=== PATIENT | female | born 1980 | race Caucasian/White ===

== ENCOUNTER 2019-06-21 15:36 | Inpatient (IN) | payer BC, SELFPAY ==
[2019-06-21] VITALS (12 sets, daily range): BP systolic 118–143; BP diastolic 90–107; PULSE 74–96; RESP 12–21; TEMP 37–37.1; O2SAT 98–100; BMI 18.8
--- NOTE | ~2019-06-21 | XR_ITS ---
XR abdomen NG/feed tube insert INDICATION: Evaluate NG tube position. TECHNIQUE: Limited KUB perform for evaluating NG tube . COMPARISON: 09/20/2006 FINDINGS: NG tube tip in the stomach. Visualized bowel gas pattern is unremarkable. IMPRESSION: 1: NG tube tip in the stomach. Reviewed, dictated and finalized at location A. ACE REPAIR MECHANIC
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
--- NOTE | ~2019-06-21 | XR_ITS ---
EXAMINATION: XR chest 1V portable DATE: 06/23/2019 05:56 INDICATION: Intubation. TECHNIQUE: A single frontal view of the chest was obtained. COMPARISON: Chest single view 06/21/2019, CT abdomen and pelvis 12/20/2003 FINDINGS: There is no pneumonia, pleural effusion, or pneumothorax. The heart size is normal. The end otracheal tube tip is 5.1 cm above the guillermina. The nasogastric tube tip is beyond the inferior margin of the radiograph, but at least to the stomach. IMPRESSION: 1. No acute cardiopulmonary disease. Reviewed, dictated and finalized at location A. BRICK AND REFRACTORY TILE REPAIRER
--- NOTE | ~2019-06-21 | XR_ITS ---
XR chest ET placement 06/21/2019 17:53 Indication: Postintubation Procedure: AP portable chest Comparison: 06/21/2019 Findings: Endotracheal tube tip 5.1 cm above the guillermina. NG tube in the stomach. Heart size normal. N o focal air space disease, pulmonary edema, pleural effusion or suspected pneumothorax. Impression: 1: No acute cardiopulmonary disease. Reviewed, dictated and finalized at location A. CARE TEACHER Impression: 1: No acute cardiopulmonary disease.
--- NOTE | ~2019-06-21 | XR_ITS ---
EXAMINATION: XR chest 1V portable 06/21/2019 16:58 INDICATION: Transient alteration of awareness PROCEDURE: AP portable chest COMPARISON: No prior studies for comparison. FINDINGS: The lungs are clear. The cardiomediastinal silhouette is within normal limits. There are no pleural effusions. There is no pneumothorax suspected. IMPRESSION: 1: NO ACUTE CARDIOPULMONARY DISEASE. Reviewed, dictated and finalized at location A. L BEARING TURNER
--- NOTE | 2019-06-21 16:02 | ECG_ITS ---
Measurements Intervals Rousseau Rate: 86 P: 72 MI: 151 QRS: 56 QRSD: 94 T: 56 QT: 389 QTc: 467 Interpretive Statements SINUS RHYTHM POSSIBLE LEFT ATRIAL ENLARGEMENT INCOMPLETE RIGHT BUNDLE BRANCH BLOCK BASELINE ARTIFACT- II, III, AVL, AVF BORDERLINE ECG Electronically Signed On 06-21-2019 21:07:04 INSTRUMENT MECHANICS SUPERVISOR by Avel Mclain D.O.
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
[2019-06-21 16:15] LABS: Glucose Point of Care 85 (65-105)
[2019-06-21 16:19] LABS: Basophils Percent Auto 0.9 % (0.2-1.2); Eosinophils Absolute Auto 0.1 K/mm3 (0-0.3); Eosinophils Percent Auto 1.5 % (0-4.4); Hematocrit 42.7 % (37.0-47.0); Hemoglobin 13.7 g/dL (12.0-15.0); Immature Granulocyte Absolute 0.01 K/mm3 (0.00-0.031); Immature Granulocyte Percent A 0.2 % (0-0.5); Lymphocytes Absolute Auto 1.41 K/mm3 (0.9-3.2); Lymphocytes Percent Auto 30.9 % (18.3-44.2); Mean Corpuscular HGB Conc 32.1 g/dl (32-36); Mean Corpuscular Hemoglobin 30.9 pg (26-34); Mean Corpuscular Volume 96.2 fl (80-100); Mean Platelet Volume 9.7 fl (7.4-10.4); Monocytes Absolute Auto 0.3 K/mm3 (0.1-0.6); Monocytes Percent Auto 5.5 % (2.6-8.5); Neutrophils Absolute Auto 2.8 K/mm3 (1.3-6.7); Platelet Count Result 282 k/mm3 (150-375); Red Blood Count 4.44 M/mm3 (4.2-5.4); Red Cell Distribution Width 13.8 % (11.5-14.5); White Blood Count 4.6 K/mm3 (4.5-10.0)
[2019-06-21 16:24] LABS: Add Urine Microscopic? YES; Appearance Urine Clear (Clear); Bilirubin Urine Negative (Negative); Blood Urine 2+ (Negative); Color Urine Colorless (Yellow); Glucose Urine UA 1+ mg/dL (Negative); Ketones Urine Negative (Negative); Leukocyte Esterase Ur Negative LEU/UL (Negative); Nitrate Urine Negative (Negative); Protein Urine Negative (Negative); RBC Urine 0-2 /hpf (0-2); Squamous Epithelial Cell Urine Rare /hpf (Few); Urobilinogen Urine Negative mg/dL (<2.0); WBC Urine 0-3 /hpf
[2019-06-21 16:26] LABS: Specific Grav Ur 1.003 (1.001-1.035)
[2019-06-21 16:35] LABS: Acetaminophen < 10 ug/mL (10-30); Salicylate < 1.0 mg/dL (2-20)
[2019-06-21 16:36] LABS: Alanine Aminotransferase 16 U/L (4-35); Albumin Level 4.6 g/dL (3.5-5.1); Alkaline Phosphatase 54 U/L (38-126); Aspartate Amino Transferase 30 U/L (14-36); Bilirubin,Total 0.2 mg/dL (0.2-1.3); Blood Urea Nitrogen 6 mg/dL (7-17); Calcium 8.9 mg/dL (8.4-10.2); Carbon Dioxide 26 mmol/L (22-30); Chloride 111 mmol/L (98-107); Estimated CRCL calculation 76 ml/min; Estimated Glomerular Filt Rate > 60; Glucose 88 mg/dL (65-105); Potassium 3.9 mmol/L (3.4-5.0); Sodium 149 mmol/L (137-145)
[2019-06-21 16:43] LABS: Amphetamine Screen Urine Negative (Negative); Barbiturate Screen Urine Negative (Negative); Benzodiazepines Screen Urine Positive (Negative); Cannabinoid Screen Urine Negative (Negative); Cocaine Screen Urine Positive (Negative); Methadone Screen Urine Negative (Negative); Opiate Screen Urine Negative (Negative); Phencyclidine Screen Urine Negative (Negative)
[2019-06-21 16:48] LABS: Base Excess ABG -0.9 mEq/l (+/-2.0); Carboxyhemoglobin 1.1 % THb (0-2.0); Fractional Inspired Oxygen 21 %; Methemoglobin ABG 0.2 %THb (0-1.5); Oxygen Saturation ABG 96.1 % (95.0-100.0); Oxyhemoglobin 94.4 % THb (90.0-100.0); PCO2 ABG 52.1 mmHg (35.0-45.0); PO2 ABG 89.9 mmHg (80.0-100.0); PO2 FiO2 Ratio Arterial Blood 4.28 %; Reduced Hemoglobin 4.3 %THb (0-5.0); Total Hemoglobin 14.3 g/dL (12.0-18.0); pH ABG 7.316 (7.350-7.450)
[2019-06-21 16:50] LABS: Device ROOM AIR; Site Drawn RIGHT BRACHIAL
[2019-06-21 16:51] LABS: Troponin I < 0.012 ng/mL (0.000-0.034)
--- NOTE | 2019-06-21 17:00 | PC.NURSE ---
Pt as increased work of breathing. snoring at this time. MD notified
[2019-06-21 17:10] LABS: Thyroid Stimulating Hormone 0.944 uIU/mL (0.465-4.680)
--- NOTE | 2019-06-21 17:32 | PC.NURSE ---
MD to intubate pt at this time. Respiratory present. VORB: 5mg Rocuronium 100mg Etomidate
--- NOTE | 2019-06-21 17:34 | PC.NURSE ---
1734: 100mg Etomidate 1734: Rocuronium given
--- NOTE | 2019-06-21 17:41 | PC.NURSE ---
7.5 tube, 23 at the lip, good color change
--- NOTE | 2019-06-21 17:45 | PC.NURSE ---
pt biting at tube, VORB 50mcg Fentanyl
[2019-06-21 17:48] LABS: Ethanol 196 mg/dL (<10)
--- NOTE | 2019-06-21 18:01 | PC.NURSE ---
Pt attempting to pull at tube, biting tube Pt placed in soft restraints at this time 50mcg Fentanyl given
--- NOTE | 2019-06-21 18:17 | PC.NURSE ---
Pt still biting at tube, thrashing 2mg Versed given IVP per VORB
--- NOTE | 2019-06-21 18:20 | PC.NURSE ---
Pt taken to CT at this time. Respiratory and this RN at bedside.
--- NOTE | 2019-06-21 18:23 | PC.NURSE ---
Pt thrashing on CT scanner, 20mcg Fentanyl given IVP
[2019-06-21] MEDS: MIDAZOLAM HCL 50 MG in DEXTROSE 5% 90 ML IV CONT (18:37)
[2019-06-21 18:38] LABS: Alveolar/Arterial O2 Gradient 48.1 mmHg; Base Excess ABG -2.5 mEq/l (+/-2.0); Carboxyhemoglobin 0.5 % THb (0-2.0); Fractional Inspired Oxygen 50 %; HCO3 ABG 22.9 mEq/l (22.0-26.0); Methemoglobin ABG 0.4 %THb (0-1.5); Oxygen Saturation ABG 99.6 % (95.0-100.0); PO2 ABG 261.2 mmHg (80.0-100.0); PO2 FiO2 Ratio Arterial Blood 5.22 %; Reduced Hemoglobin 1.1 %THb (0-5.0); Total Hemoglobin 14.1 g/dL (12.0-18.0); pH ABG 7.355 (7.350-7.450)
[2019-06-21 18:42] LABS: Arterial Blood Gas Ventilator rate 16 /MIN; Device VENTILATOR; Modified Allen's Test Pass; Site Drawn LEFT RADIAL
[2019-06-21 18:43] LABS: Arterial Blood Gas Minute Volume 0 LPM; Arterial Blood Gas PEEP 5 cmH2O; Arterial Blood Gas Pressure Support 0 cmH2O; Arterial Blood Gas Tidal Volume 350 ml; Arterial Blood Gas Vent Mode CMV; Peak Inspiratory Pressure 0 cmH2O
--- NOTE | 2019-06-21 19:04 | PC.NURSE ---
Addendum entered by Moon Chahal RN 06/21/19 19:04: 1817 Original Note: Pt still biting at tube, thrashing 2mg Versed given IVP per VORB
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
--- NOTE | 2019-06-21 19:25 | PC.NURSE ---
Daughter, Fallon would like to be notified with any changes [phone]
[2019-06-21 20:36] LABS: Blood Urea Nitrogen 5 mg/dL (7-17); Calcium 8.7 mg/dL (8.4-10.2); Carbon Dioxide 19 mmol/L (22-30); Chloride 113 mmol/L (98-107); Estimated CRCL calculation 99 ml/min; Estimated Glomerular Filt Rate > 60; Glucose 64 mg/dL (65-105); Magnesium 2.7 mg/dL (1.6-2.3); Potassium 4.3 mmol/L (3.4-5.0); Sodium 150 mmol/L (137-145)
[2019-06-21 21:33] LABS: Troponin I < 0.012 ng/mL (0.000-0.034)
[2019-06-21 21:49] LABS: Glucose Point of Care 66 (65-105)
[2019-06-21] MEDS: DEXTROSE 5% 1,000 ML 1,000 ML 100 ML IV CONT (21:57)
[2019-06-21 22:09] LABS: Alveolar/Arterial O2 Gradient 29.3 mmHg; Base Excess ABG -0.9 mEq/l (+/-2.0); Fractional Inspired Oxygen 30 %; HCO3 ABG 23.3 mEq/l (22.0-26.0); Oxygen Content ABG 19.1 %vol (16.0-22.0); Oxygen Saturation ABG 98.8 % (95.0-100.0); Oxyhemoglobin 97.3 % THb (90.0-100.0); PCO2 ABG 37.1 mmHg (35.0-45.0); Total Hemoglobin 13.8 g/dL (12.0-18.0); pH ABG 7.415 (7.350-7.450)
--- NOTE | 2019-06-21 22:10 | ADMGEN ---
This patient, Saray Loza, was admitted to Intensive Care Unit-6. Patient/family oriented to hospital policies and general routines including ID bracelet, bed and alarms, visiting hours, pain management, procedures, bathroom and other care routines, personal items, smoking policy, room service/diet, and visiting hours. Valuables list has been completed. Information on how to activate the Rapid Response Team has been discussed. Patient/Family are encouraged to report perceived risks to care and to ask questions if they do not understand what they are told or what they should do.
[2019-06-21 22:12] LABS: Device VENTILATOR; Modified Allen's Test Pass; Site Drawn LEFT RADIAL
[2019-06-21 22:13] LABS: Arterial Blood Gas PEEP 5 cmH2O; Arterial Blood Gas Tidal Volume 350 ml; Arterial Blood Gas Vent Mode CMV; Arterial Blood Gas Ventilator rate 16 /MIN
[2019-06-21 23:33] LABS: Glucose Point of Care 101 (65-105)
[2019-06-22] VITALS (24 sets, daily range): BP systolic 113–156; BP diastolic 55–100; PULSE 59–80; RESP 11–100; TEMP 36.6–38.1; O2SAT 30–100; BMI 15.5
[2019-06-22 00:49] LABS: Blood Urea Nitrogen 6 mg/dL (7-17); Calcium 8.3 mg/dL (8.4-10.2); Carbon Dioxide 23 mmol/L (22-30); Chloride 112 mmol/L (98-107); Estimated CRCL calculation 88 ml/min; Estimated Glomerular Filt Rate > 60; Glucose 89 mg/dL (65-105); Potassium 3.5 mmol/L (3.4-5.0); Sodium 146 mmol/L (137-145)
[2019-06-22 04:29] LABS: Basophils Absolute Auto 0.1 K/mm3 (0.0-0.1); Basophils Percent Auto 0.5 % (0.2-1.2); Eosinophils Absolute Auto 0.4 K/mm3 (0-0.3); Eosinophils Percent Auto 3.6 % (0-4.4); Hematocrit 43.3 % (37.0-47.0); Hemoglobin 13.8 g/dL (12.0-15.0); Immature Granulocyte Absolute 0.02 K/mm3 (0.00-0.031); Immature Granulocyte Percent A 0.2 % (0-0.5); Lymphocytes Absolute Auto 2.83 K/mm3 (0.9-3.2); Lymphocytes Percent Auto 28.5 % (18.3-44.2); Mean Corpuscular HGB Conc 31.9 g/dl (32-36); Mean Corpuscular Hemoglobin 30.7 pg (26-34); Mean Corpuscular Volume 96.4 fl (80-100); Mean Platelet Volume 9.6 fl (7.4-10.4); Monocytes Absolute Auto 0.8 K/mm3 (0.1-0.6); Monocytes Percent Auto 8.5 % (2.6-8.5); Neutrophils Absolute Auto 5.8 K/mm3 (1.3-6.7); Neutrophils Percent Auto 58.7 % (45.5-73.1); Platelet Count Result 262 k/mm3 (150-375); Red Blood Count 4.49 M/mm3 (4.2-5.4); Red Cell Distribution Width 14.1 % (11.5-14.5); White Blood Count 9.9 K/mm3 (4.5-10.0)
[2019-06-22 04:42] LABS: Blood Urea Nitrogen 7 mg/dL (7-17); Calcium 8.5 mg/dL (8.4-10.2); Carbon Dioxide 22 mmol/L (22-30); Chloride 110 mmol/L (98-107); Estimated CRCL calculation 88 ml/min; Estimated Glomerular Filt Rate > 60; Glucose 67 mg/dL (65-105); Potassium 4.1 mmol/L (3.4-5.0); Sodium 144 mmol/L (137-145)
[2019-06-22 05:06] LABS: Alveolar/Arterial O2 Gradient 39.4 mmHg; Base Excess ABG 2.5 mEq/l (+/-2.0); Fractional Inspired Oxygen 30 %; HCO3 ABG 27.4 mEq/l (22.0-26.0); Oxygen Content ABG 18.9 %vol (16.0-22.0); Oxygen Saturation ABG 98.5 % (95.0-100.0); Oxyhemoglobin 97.1 % THb (90.0-100.0); PCO2 ABG 43.2 mmHg (35.0-45.0); PO2 ABG 123.7 mmHg (80.0-100.0); PO2 FiO2 Ratio Arterial Blood 4.12 %; Total Hemoglobin 13.7 g/dL (12.0-18.0)
[2019-06-22 05:07] LABS: Device VENTILATOR; Modified Allen's Test Pass; Site Drawn LEFT RADIAL
[2019-06-22 05:08] LABS: Arterial Blood Gas PEEP 5 cmH2O; Arterial Blood Gas Tidal Volume 350 ml; Arterial Blood Gas Vent Mode CMV; Arterial Blood Gas Ventilator rate 16 /MIN
[2019-06-22 06:58] LABS: Glucose Point of Care 71 (65-105)
[2019-06-22] MEDS: MIDAZOLAM HCL 50 MG in DEXTROSE 5% 90 ML IV CONT (07:05)
[2019-06-22] MEDS: DEXTROSE 5% 1,000 ML 1,000 ML 100 ML IV CONT ×2 (07:10→16:57)
[2019-06-22] MEDS: THIAMINE HCL 200 MG/2 ML VIAL 100 MG IV PUSH (08:36)
[2019-06-22] MEDS: ENOXAPARIN 40 MG/0.4 ML SYRINGE SUB-Q (12:09)
[2019-06-22] MEDS: PANTOPRAZOLE SODIUM IV 40 MG VIAL IV PUSH (12:09)
--- NOTE | 2019-06-22 12:15 | WPDCNINT ---
Assessment and Plan Assessment and plan (1) Acute respiratory failure: Qualifiers: Respiratory failure complication: unspecified whether with hypoxia or hypercapnia Qualified Code(s): J96.00 - Acute respiratory failure, unspecified whether with hypoxia or hypercapnia Code(s): J96.00 - Acute respiratory failure, unspecified whether with hypoxia or hypercapnia Status: Acute Assessment and Plan: patient was intubated for airway protection after overdosing on not medications/pills. - Patient had a low GCS in the ED and was placed on mechanical ventilation - chest x-ray and ABGs reviewed, - will hold fentanyl and Versed infusion and place patient on SBT and evaluate for extubation. (2) Acute encephalopathy: Code(s): G93.40 - Encephalopathy, unspecified Status: Acute Assessment and Plan: Acute encephalopathy likely related to alcohol intoxication, cocaine abuse and unknown medication /substance overdose - patient received adequate IV fluids, his waking up and following commands on the ventilator (3) Overdose: Qualifiers: Encounter type: initial encounter Injury intent: undetermined intent Qualified Code(s): T50.904A - Poisoning by unspecified drugs, medicaments and biological substances, undetermined, initial encounter Code(s): T50.901A - Poisoning by unspecified drugs, medicaments and biological substances, accidental (unintentional), initial encounter Status: Acute Assessment and Plan: unknown substance /medication overdose - patient also with alcohol intoxication and cocaine abuse (4) Alcoholic intoxication: Qualifiers: Complication of substance-induced condition: with delirium Qualified Code(s): F10.921 - Alcohol use, unspecified with intoxication delirium Code(s): F10.929 - Alcohol use, unspecified with intoxication, unspecified Status: Acute Assessment and Plan: patient with alcohol intoxication, alcohol levels were significantly elevated on admission - continue IV fluids, thiamine, folic acid (5) Cocaine abuse: Code(s): F14.10 - Cocaine abuse, uncomplicated Status: Acute Assessment and Plan: patient with cocaine abuse, urine tox screen was positive for benzodiazepines and cocaine - will addictions counselor assistant patient on cessation of cocaine use once she is extubated (6) Suicide attempt: Code(s): T14.91XA - Suicide attempt, initial encounter Status: Acute Assessment and Plan: according the father, this was a active suicide attempt/behavior by the patient as she has been mood depressed recently and stressed. the patient lost her mother not too long ago - once patient is extubated, medically stable will have care coordination and crisis management evaluate the patient - family requests psych help (7) DVT prophylaxis: Code(s): Z29.9 - Encounter for prophylactic measures, unspecified Status: Acute Assessment and Plan: DVT prophylaxis: Lovenox Stress ulcer prophylaxis: Protonix Additional Plan discussed with father and updated him with patient's condition and plan of care. I answered all questions code status: Full code Critical care time spent: 39 minutes Due to a high probability of clinically significant, life threatening deterioration, the patient required my highest level of preparedness to intervene emergently and I personally spent this critical care time directly and personally managing the patient. This critical care time included obtaining a history; examining the patient; pulse oximetry; ordering and review of studies; arranging urgent treatment with development of a management plan; evaluation of patient's response to treatment; frequent reassessment; and discussions with other providers. It was exclusive of separately billable procedures and treating other patients and teaching time. Please see Assessment and Plan section and the rest of
[2019-06-22 12:32] LABS: Glucose Point of Care 102 (65-105)
[2019-06-22] MEDS: LACTATED RINGERS 1,000 ML 999 ML IV CONT (13:30)
[2019-06-22 16:57] LABS: Glucose Point of Care 102 (65-105)
[2019-06-22 23:56] LABS: Glucose Point of Care 85 (65-105)
[2019-06-23] VITALS (15 sets, daily range): BP systolic 108–156; BP diastolic 68–101; PULSE 60–98; RESP 10–26; TEMP 36.8–38.7; O2SAT 99–100
[2019-06-23] MEDS: DEXTROSE 5% 1,000 ML 1,000 ML 100 ML IV CONT ×3 (03:04→21:37)
[2019-06-23 04:28] LABS: Hematocrit 38.8 % (37.0-47.0); Hemoglobin 12.9 g/dL (12.0-15.0); Mean Corpuscular HGB Conc 33.2 g/dl (32-36); Mean Corpuscular Hemoglobin 31.2 pg (26-34); Mean Corpuscular Volume 93.7 fl (80-100); Mean Platelet Volume 10.1 fl (7.4-10.4); Platelet Count Result 235 k/mm3 (150-375); Red Blood Count 4.14 M/mm3 (4.2-5.4); Red Cell Distribution Width 13.6 % (11.5-14.5); White Blood Count 8.1 K/mm3 (4.5-10.0)
[2019-06-23 04:41] LABS: Blood Urea Nitrogen 6 mg/dL (7-17); Calcium 8.6 mg/dL (8.4-10.2); Carbon Dioxide 24 mmol/L (22-30); Chloride 102 mmol/L (98-107); Estimated CRCL calculation 82 ml/min; Estimated Glomerular Filt Rate > 60; Glucose 103 mg/dL (65-105); Magnesium 2.1 mg/dL (1.6-2.3); Potassium 3.4 mmol/L (3.4-5.0); Sodium 134 mmol/L (137-145)
[2019-06-23 05:43] LABS: Alveolar/Arterial O2 Gradient 28.3 mmHg; Base Excess ABG -0.1 mEq/l (+/-2.0); Carboxyhemoglobin 0.1 % THb (0-2.0); Fractional Inspired Oxygen 30 %; HCO3 ABG 22.9 mEq/l (22.0-26.0); Methemoglobin ABG 0.5 %THb (0-1.5); Oxygen Content ABG 19.2 %vol (16.0-22.0); Oxyhemoglobin 97.8 % THb (90.0-100.0); PCO2 ABG 32.5 mmHg (35.0-45.0); PO2 ABG 147.4 mmHg (80.0-100.0); PO2 FiO2 Ratio Arterial Blood 4.91 %; Reduced Hemoglobin 1.6 %THb (0-5.0); Total Hemoglobin 13.8 g/dL (12.0-18.0); pH ABG 7.465 (7.350-7.450)
[2019-06-23 05:44] LABS: Device VENTILATOR; Modified Allen's Test Pass; Site Drawn LEFT RADIAL
[2019-06-23 05:45] LABS: Arterial Blood Gas PEEP 5 cmH2O; Arterial Blood Gas Vent Mode ASV
[2019-06-23] MEDS: THIAMINE HCL 200 MG/2 ML VIAL 100 MG IV PUSH (08:33)
[2019-06-23] MEDS: ENOXAPARIN 40 MG/0.4 ML SYRINGE SUB-Q (08:33)
[2019-06-23] MEDS: PANTOPRAZOLE SODIUM IV 40 MG VIAL IV PUSH (08:34)
--- NOTE | 2019-06-23 11:40 | WPDINTPN ---
Progress Note: A&P Assessment and Plan (1) Acute respiratory failure: Qualifiers: Respiratory failure complication: unspecified whether with hypoxia or hypercapnia Qualified Code(s): J96.00 - Acute respiratory failure, unspecified whether with hypoxia or hypercapnia Code(s): J96.00 - Acute respiratory failure, unspecified whether with hypoxia or hypercapnia Status: Acute Assessment and Plan: patient was intubated for airway protection after overdosing on not medications/pills. Patient had a low GCS in the ED and was placed on mechanical ventilation - chest x-ray and ABGs reviewed, - discontinued Precedex infusion, patient placed on SBT and extubated (2) Acute encephalopathy: Code(s): G93.40 - Encephalopathy, unspecified Status: Acute Assessment and Plan: RESOLVED: IS MORE AWAKE, ALERT, FOLLOWS COMMANDS - Acute encephalopathy likely related to alcohol intoxication, cocaine abuse and unknown medication /substance overdose (3) Suicide attempt: Code(s): T14.91XA - Suicide attempt, initial encounter Status: Acute Assessment and Plan: according the father, this was a active suicide attempt/behavior by the patient as she has been mood depressed recently and stressed. the patient lost her mother not too long ago - patient is medically stable and will have crisis management evaluate the patient later this afternoon - family requests psych help (4) Overdose: Qualifiers: Encounter type: initial encounter Injury intent: undetermined intent Qualified Code(s): T50.904A - Poisoning by unspecified drugs, medicaments and biological substances, undetermined, initial encounter Code(s): T50.901A - Poisoning by unspecified drugs, medicaments and biological substances, accidental (unintentional), initial encounter Status: Acute Assessment and Plan: unknown substance /medication overdose - patient also with alcohol intoxication and cocaine abuse (5) Alcoholic intoxication: Qualifiers: Complication of substance-induced condition: with delirium Qualified Code(s): F10.921 - Alcohol use, unspecified with intoxication delirium Code(s): F10.929 - Alcohol use, unspecified with intoxication, unspecified Status: Acute Assessment and Plan: patient with alcohol intoxication, alcohol levels were significantly elevated on admission - continue IV fluids, thiamine, folic acid (6) Cocaine abuse: Code(s): F14.10 - Cocaine abuse, uncomplicated Status: Acute Assessment and Plan: patient with cocaine abuse, urine tox screen was positive for benzodiazepines and cocaine - will curriculum counselor patient on cessation of cocaine (7) DVT prophylaxis: Code(s): Z29.9 - Encounter for prophylactic measures, unspecified Status: Acute Assessment and Plan: DVT prophylaxis: Lovenox Stress ulcer prophylaxis: Protonix Additional Plan discussed with father and updated him with patient's condition and plan of care. I answered all questions code status: Full code Critical care time spent: 32 minutes Due to a high probability of clinically significant, life threatening deterioration, the patient required my highest level of preparedness to intervene emergently and I personally spent this critical care time directly and personally managing the patient. This critical care time included obtaining a history; examining the patient; pulse oximetry; ordering and review of studies; arranging urgent treatment with development of a management plan; evaluation of patient's response to treatment; frequent reassessment; and discussions with other providers. It was exclusive of separately billable procedures and treating other patients and teaching time. Please see Assessment and Plan section and the rest of the note for further information on patient assessment and treatment Subjective Date/time seen:
--- NOTE | 2019-06-23 11:45 | PCDIET ---
Nutrition Follow-Up Complete: Nutrition Diagnosis: Inadequate oral intake related to oral intubation as evidenced by NPO status. Nutrition Goal: Patient to meet estimated nutritional needs. Goal not met. However, patient was extubated earlier today and MD plans to advance diet if patient continues to do well. Recommend regular diet with Ensure Compact (220kcal, 9g protein) TID. Would monitor for signs/symptoms of refeeding syndrome and replace electrolytes, as needed. Last recorded weight is 56.7 kg which is increased significantly. Question accuracy of 43kg weight, given it is an outlier. Bowel Motility: No documented bowel movement yet. Labs Reviewed: BUN (6), Na (134) Meds Noted: Precedex, Protonix, Thiamine Additional Notes: No documented skin breakdown. Will continue to monitor with same goal. Nutrition Monitoring and Evaluation: Follow up every 3 days. Follow daily in ICU rounds.
--- NOTE | 2019-06-23 15:02 | PM.DS ---
DS: Diagnosis Admitting Diagnosis Admitting Diagnosis: Acute respiratory failure, unspecified whether with hypoxia or hypercapnia Discharge Diagnosis (1) Acute respiratory failure: Qualifiers: Respiratory failure complication: unspecified whether with hypoxia or hypercapnia Qualified Code(s): J96.00 - Acute respiratory failure, unspecified whether with hypoxia or hypercapnia Code(s): J96.00 - Acute respiratory failure, unspecified whether with hypoxia or hypercapnia Status: Acute Assessment and Plan: Admit to ICU, telemetry, [employer] T[employer] Maker has been consulted by ER provider. Continue versed and fentanyl for sedation overnight. Monitor ABG. Wean off of bipap when possible. (2) Acute encephalopathy: Code(s): G93.40 - Encephalopathy, unspecified Status: Acute Assessment and Plan: Secondary to alcohol intoxication, cocaine, and possible overdose. Neurochecks once the patient is extubated. CT brain was unremarkable. Check TSH w/ reflex T4. Urine drug screen is unremarkable. (3) Alcoholic intoxication: Qualifiers: Complication of substance-induced condition: with delirium Qualified Code(s): F10.921 - Alcohol use, unspecified with intoxication delirium Code(s): F10.929 - Alcohol use, unspecified with intoxication, unspecified Status: Acute Assessment and Plan: Continue Banana bag and daily thiamine. CIWA-AR protocol. The patient will need to be counseled on alcohol abuse when she is extubated. (4) Overdose: Qualifiers: Encounter type: initial encounter Injury intent: undetermined intent Qualified Code(s): T50.904A - Poisoning by unspecified drugs, medicaments and biological substances, undetermined, initial encounter Code(s): T50.901A - Poisoning by unspecified drugs, medicaments and biological substances, accidental (unintentional), initial encounter Status: Acute Assessment and Plan: Possible drug overdose of unknown intention. Close monitoring of cardiopulmonary function. telemetry. Will need to obtain a better history once the patient is extubated and awake to find out if she is suicidal. (5) Cocaine abuse: Code(s): F14.10 - Cocaine abuse, uncomplicated Status: Acute Assessment and Plan: The patient will need to be counseled on cocaine abuse and cessation when she is extubated. (6) Hypernatremia: Code(s): E87.0 - Hyperosmolality and hypernatremia Status: Acute Assessment and Plan: Will start the patient on D5W. Monitor BMP closely. (7) Metabolic acidosis with increased anion gap and accumulation of organic acids: Code(s): E87.2 - Acidosis Status: Acute Assessment and Plan: Monitor acid-base status closely. Continue IV fluids. Will consider sodium bicarbonate IV drip if necessary overnight. DS: Summary Hospital Course Reason for hospitalization: This is a 39 year old female who presented to the hospital today with acute altered mental status. Per ER provider EMS was called by the patient's boyfriend at 1400 today and were told that the patient possibly took an unknown amount of pills. The boyfriend told EMS that she took Amoxicillin, but he is unsure. When EMS arrived on scene, the patient got into her car and fled the scene. 45 minutes prior to the patient's ED arrival, the patient's father called EMS and notified them that the patient showed up at his house and passed out on his couch. The patient's father told EMS that she has been on a cocaine tellez and has been depressed recently. The father told EMS that the patient has not been suicidal. EMS gave the patient Narcan in route to the ED, but the patient did not become alert. She had a recent hysterectomy. The patient was intubated and sedated in the ER for acute respiratory failure. CT brain was unremarkable for acute pathology. Routine labs demonstrated a urine tox screen positive for benzodiazepines and co
[2019-06-24] VITALS: BP 109/69; PULSE 73; RESP 13; O2SAT 100
[2019-06-24 02:00] VITALS: BP 111/69; PULSE 81; RESP 16; O2SAT 100
[2019-06-24 04:00] VITALS: BP 108/77; PULSE 64; PULSE 71
[2019-06-24 04:01] VITALS: BP 108/77; PULSE 71; RESP 12; O2SAT 100
[2019-06-24 06:00] VITALS: PULSE 61
[2019-06-24] MEDS: DEXTROSE 5% 1,000 ML 1,000 ML 100 ML IV CONT (06:49)
[2019-06-24 06:53] LABS: Glucose Point of Care 84 (65-105)
[2019-06-24 08:00] VITALS: BP 125/87; PULSE 68; RESP 14; TEMP 36.7; O2SAT 100
[2019-06-24] MEDS: PANTOPRAZOLE SODIUM IV 40 MG VIAL IV PUSH (08:18)
[2019-06-24] MEDS: ENOXAPARIN 40 MG/0.4 ML SYRINGE SUB-Q (08:18)
[2019-06-24] MEDS: THIAMINE HCL 200 MG/2 ML VIAL 100 MG IV PUSH (08:18)
--- NOTE | 2019-06-24 11:49 | WPDINTPN ---
Progress Note: A&P Assessment and Plan (1) Acute respiratory failure: Qualifiers: Respiratory failure complication: unspecified whether with hypoxia or hypercapnia Qualified Code(s): J96.00 - Acute respiratory failure, unspecified whether with hypoxia or hypercapnia Code(s): J96.00 - Acute respiratory failure, unspecified whether with hypoxia or hypercapnia Status: Acute Assessment and Plan: patient was intubated for airway protection after overdosing on Unknown medications/pills. Patient had a low GCS in the ED. she has been extubated yesterday and she tolerated very well. She is on room air at this time. No issue with the mental status. (2) Acute encephalopathy: Code(s): G93.40 - Encephalopathy, unspecified Status: Acute Assessment and Plan: Resolved. Seems to be awake and alert and at her baseline. - Acute encephalopathy likely related to alcohol intoxication, cocaine abuse and unknown medication /substance overdose. (3) Suicide attempt: Code(s): T14.91XA - Suicide attempt, initial encounter Status: Acute Assessment and Plan: according the father, this was a active suicide attempt/behavior by the patient as she has been mood depressed recently and stressed. the patient lost her mother not too long ago - patient is medically stable and Ready for crisis management evaluation. It seems that she has a bed available in the psych facility. She is medically cleared for transfer if the bed is available. - family requests psych help (4) Overdose: Qualifiers: Encounter type: initial encounter Injury intent: undetermined intent Qualified Code(s): T50.904A - Poisoning by unspecified drugs, medicaments and biological substances, undetermined, initial encounter Code(s): T50.901A - Poisoning by unspecified drugs, medicaments and biological substances, accidental (unintentional), initial encounter Status: Acute Assessment and Plan: unknown substance /medication overdose - patient also with alcohol intoxication and cocaine abuse She will need inpatient psych admission. (5) Alcoholic intoxication: Qualifiers: Complication of substance-induced condition: with delirium Qualified Code(s): F10.921 - Alcohol use, unspecified with intoxication delirium Code(s): F10.929 - Alcohol use, unspecified with intoxication, unspecified Status: Acute Assessment and Plan: patient with alcohol intoxication, alcohol levels were significantly elevated on admission - continue thiamine, folic acid. Stop IV fluid. She denied have ever any symptoms of anxiety / tremors and restlessness when she does not drink. (6) Cocaine abuse: Code(s): F14.10 - Cocaine abuse, uncomplicated Status: Acute Assessment and Plan: patient with cocaine abuse, urine tox screen was positive for benzodiazepines and cocaine - will loan counselor patient on cessation of cocaine (7) DVT prophylaxis: Code(s): Z29.9 - Encounter for prophylactic measures, unspecified Status: Acute Assessment and Plan: DVT prophylaxis: Lovenox Stress ulcer prophylaxis: Protonix Additional Plan discussed with father and updated him with patient's condition and plan of care. I answered all questions. Discontinue Christianson's catheter. She is ambulatory and ready to be discharged to the inpatient psych facility if the bed is available. If the bed is not available then she will be downgraded to the floor status. code status: Full code Subjective Date/time seen: 06/24/19 12:49 She has been extubated yesterday and she tolerated very well. She is on room air now. There is no signs of alcohol withdrawal. She denied have any symptoms of anxiety / tremor when she does not drink alcohol. Her urine was positive for benzodiazepine and cocaine. Her alcohol level was elevated as well at the time o
== END 2019-06-24 15:16 | DRG 917 ==
LOC: ANHED 18:35 → ANHICU 06-23 14:40
PROVIDERS: Emergency Medicine; Family Medicine; Internal Medicine; Admitting Provider Internal Medicine; Emergency Provider Emergency Medicine; Visit Provider Family Medicine
DX: T40.5X2A Poisoning by cocaine, intentional self-harm, initial encounter (principal); J96.00 Acute respiratory failure, unspecified whether with hypoxia or hypercapnia; G92 Toxic encephalopathy; F10.921 Alcohol use, unspecified with intoxication delirium; E87.0 Hyperosmolality and hypernatremia; E87.2 Acidosis; T51.0X2A Toxic effect of ethanol, intentional self-harm, initial encounter; T42.4X2A Poisoning by benzodiazepines, intentional self-harm, initial encounter; Z90.710 Acquired absence of both cervix and uterus; Y90.6 Blood alcohol level of 120-199 mg/100 ml; F14.10 Cocaine abuse, uncomplicated; F17.290 Nicotine dependence, other tobacco product, uncomplicated; F41.8 Other specified anxiety disorders
CPT/HCPCS: 31500; 36415; 36600; 51701; 70450; 71045; 80048; 80053; 80307; 81001; 81025; 82375; 82805; 82948; 83050; 83735; 84100; 84443; 84484; 85025; 85027; 87081; 93005; 94003; 96365; 96366; 96367; 96368; 99291; C9113; J1650; J2250; J3010; J3411; J3475; J7050; J7070; J7120; J7121

== ENCOUNTER 2019-10-14 11:00 | Inpatient (IN) | payer BC, SELFPAY ==
[2019-10-14] VITALS (9 sets, daily range): BP systolic 109–156; BP diastolic 70–101; PULSE 89–128; RESP 16–20; TEMP 36.2–36.9; O2SAT 100; BMI 15.2
--- NOTE | ~2019-10-14 | XR_ITS ---
EXAMINATION: XR small bowel follow through DATE: 10/16/2019 13:09 INDICATION: Gastrointestinal hemorrhage. TECHNIQUE: Oral contrast was administered, and a time course of radiographs of the abdomen was obtain ed. Fluoroscopy of the small bowel was performed. Fluoroscopy exposure time was 0.1 minutes. The tota l number of images was 9. COMPARISON: CT abdomen and pelvis 10/14/2019 FINDINGS: There are no dilated loops of bowel. There is no mass or stricture. The terminal ileum is normal. Tra nsit time from the stomach to proximal colon was approximately 1 hour. IMPRESSION: 1. Normal small bowel series. Reviewed, dictated and finalized at location A.
--- NOTE | ~2019-10-14 | CT_ITS ---
EXAMINATION: CT abdomen pelvis w con INDICATION: Hematochezia TECHNIQUE: Computed tomographic images of the abdomen and pelvis were obtained after the administrati on of 100 cc of Omnipaque 350 intravenous contrast. The dose-length product (DLP) was 217.16 mGy-cm. Automated exposure control and iterative reconstruction technique were employed. COMPARISON: 12/20/2003 FINDINGS: There are age indeterminate fractures of the left eighth through 11th ribs. The lung bases are clear. The heart size is normal. The liver, spleen, pancreas, gallbladder, and adrenal glands are normal. There is a 7 mm cyst of the right kidney. The left kidney is unremarkable. No pathologically enlarged abdominal or pelvic lymph nodes are identified. There is no free intraperitoneal gas or darryl dence of bowel obstruction. The appendix is normal. There is mild bladder wall thickening. IMPRESSION: 1. No CT correlate for the patient's symptoms. 2. Mild wall thickening of the bladder which could reflect cystitis. 3. Multiple left-sided rib fractures. Reviewed, dictated and finalized at location A.
[2019-10-14 11:17] LABS: Basophils Absolute Auto 0.1 K/mm3 (0.0-0.1); Basophils Percent Auto 0.5 % (0.2-1.2); Eosinophils Absolute Auto 0.1 K/mm3 (0-0.3); Eosinophils Percent Auto 0.6 % (0-4.4); Hemoglobin 12.7 g/dL (12.0-15.0); Immature Granulocyte Absolute 0.04 K/mm3 (0.00-0.031); Immature Granulocyte Percent A 0.4 % (0-0.5); Lymphocytes Absolute Auto 3.72 K/mm3 (0.9-3.2); Lymphocytes Percent Auto 33.9 % (18.3-44.2); Mean Corpuscular HGB Conc 33.4 g/dl (32-36); Mean Corpuscular Hemoglobin 31.1 pg (26-34); Mean Corpuscular Volume 92.9 fl (80-100); Mean Platelet Volume 9.6 fl (7.4-10.4); Monocytes Absolute Auto 0.8 K/mm3 (0.1-0.6); Monocytes Percent Auto 7.2 % (2.6-8.5); Neutrophils Absolute Auto 6.3 K/mm3 (1.3-6.7); Neutrophils Percent Auto 57.4 % (45.5-73.1); Platelet Count Result 454 k/mm3 (150-375); Red Blood Count 4.09 M/mm3 (4.2-5.4); Red Cell Distribution Width 14.1 % (11.5-14.5)
[2019-10-14] MEDS: PANTOPRAZOLE SODIUM IV 40 MG VIAL IV PUSH ×2 (11:18→20:33)
[2019-10-14] MEDS: SODIUM CHLORIDE 0.9% IV 1,000 ML 999 ML IV CONT (11:18)
[2019-10-14 11:28] LABS: Alanine Aminotransferase 19 U/L (4-35); Albumin Level 5.2 g/dL (3.5-5.1); Alkaline Phosphatase 77 U/L (38-126); Aspartate Amino Transferase 31 U/L (14-36); Bilirubin,Total 0.3 mg/dL (0.2-1.3); Blood Urea Nitrogen 16 mg/dL (7-17); Calcium 9.7 mg/dL (8.4-10.2); Carbon Dioxide 23 mmol/L (22-30); Chloride 100 mmol/L (98-107); Estimated CRCL calculation 79 ml/min; Estimated Glomerular Filt Rate > 60; Glucose 125 mg/dL (65-105); Lipase 49 U/L (23-300); Sodium 136 mmol/L (137-145)
[2019-10-14] MEDS: ONDANSETRON INJ 4 MG/2 ML VIAL IV PUSH (11:42)
[2019-10-14] MEDS: FAMOTIDINE 20 MG/2 ML VIAL IV PUSH (11:42)
[2019-10-14 11:52] LABS: Lactic Acid Reflex 1.2 mmol/L (0.7-2.1)
[2019-10-14 11:58] LABS: Add Urine Microscopic? YES; Appearance Urine Clear (Clear); Bacteria Urine Trace /hpf; Bilirubin Urine Negative (Negative); Blood Urine 2+ (Negative); Color Urine Yellow (Yellow); Glucose Urine UA Negative (Negative); Ketones Urine Trace mg/dL (Negative); Leukocyte Esterase Ur 1+ LEU/UL (Negative); Mucus Urine Moderate /lpf; Nitrate Urine Negative (Negative); Protein Urine 1+ mg/dL (Negative); Specific Grav Ur 1.025 (1.001-1.035); Squamous Epithelial Cell Urine Few /hpf (Few); Urobilinogen Urine Negative mg/dL (<2.0); WBC Urine 21-30 /hpf
--- NOTE | 2019-10-14 12:24 | ED.GENADULT ---
HPI - General Adult General Chief complaint: GI Bleed <Juan Villanueva PA-C - Last Filed: 10/14/19 14:13> Stated complaint: Blood in Stool <Juan Villanueva PA-C - Last Filed: 10/14/19 14:13> Time Seen by Provider: 10/14/19 11:07 <Juan Villanueva PA-C - Last Filed: 10/14/19 14:13> Source: patient <Juan Villanueva PA-C - Last Filed: 10/14/19 14:13> Mode of arrival: ambulatory <Juan Villanueva PA-C - Last Filed: 10/14/19 14:13> Limitations: no limitations <Juan Villanueva PA-C - Last Filed: 10/14/19 14:13> History of Present Illness HPI narrative: Patient is a 39-year-old female who presents to emergency department for evaluation of bright red blood per rectum noting multiple episodes of large amounts of red blood per rectum since 430 this morning patient denies any pain or nausea. Patient denies similar occurrence or any injury or trauma or straining. Patient does note last night she was intoxicated with alcohol and cocaine. Patient on arrival is in the room in no distress presents per private <Juan Villanueva PA-C - Last Filed: 10/14/19 14:13> Related Data Home medications: Home Medications Medication Instructions Recorded Confirmed levonorgest-eth.estradiol-iron 1 tablet PO DAILY 10/14/19 10/14/19 [Balcoltra] <Juan Villanueva PA-C - Last Filed: 10/14/19 14:13> Allergies/adverse reactions: Allergies Allergy/AdvReac Type Severity Reaction Status Date / Time Penicillins Allergy Mild Unknown Verified 10/14/19 11:11 <Juan Villanueva PA-C - Last Filed: 10/14/19 14:13> Review of Systems Review of Systems: All systems reviewed & are unremarkable except as noted in HPI and below <Juan Villanueva PA-C - Last Filed: 10/14/19 14:13> PMFSH Past Medical History Medical History: Medical History Substance use disorder Uses cocaine Tobacco abuse <Juan Villanueva PA-C - Last Filed: 10/14/19 14:13> Surgical History Surgical History: Surgical History History of thumb surgery Right <Juan Villanueva PA-C - Last Filed: 10/14/19 14:13> Family History Family History: Family History Mother Lung cancer Brain cancer Father Hypertension <Juan Villanueva PA-C - Last Filed: 10/14/19 14:13> Social History Social History: Social History Smoking status: Current every day smoker Tobacco type: e-cigarettes/vaping Second hand tobacco smoke exposure: Yes Additional smoking assessment comments: She smoked cigarettes for 23 years 1 PPD, now she vapes Alcohol intake: current Alcohol use details: Patient reports social alcohol use. Last night she drank 6 beers and 3 shots. Substance use: current Substance use type: crack/cocaine Other substance usage details: She reports using cocaine a few times per month. Last use: 10/13/2019 Living arrangements: with family Additional living arrangements comments: She lives in [place], [place] with her two children. 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 HEAD: Normocephalic, atraumatic. EYES: PERRLA and EOMI. ENT: Nares clear, no rhinorrhea or epistaxis. Mucous membranes moist. CHEST: Clear to auscultation. No respiratory distress. No wheezes rales or rhonchi HEART: Regular rate and rhythm. No murmur heard. Normal peripheral pulses. ABDOMEN: Soft, nontender, nondistended FEM
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
[2019-10-14 14:35] LABS: Hematocrit 28.6 % (37.0-47.0); Hemoglobin 9.5 g/dL (12.0-15.0)
--- NOTE | 2019-10-14 16:01 | ADMGEN ---
This patient, Saray Loza, was admitted to 2 Medical Room 242-. Patient/family oriented to hospital policies and general routines including ID bracelet, bed and alarms, visiting hours, pain management, procedures, bathroom and other care routines, personal items, smoking policy, room service/diet, and visiting hours. Valuables list has been completed. Information on how to activate the Rapid Response Team has been discussed. Patient/Family are encouraged to report perceived risks to care and to ask questions if they do not understand what they are told or what they should do.
[2019-10-14] MEDS: LACTATED RINGERS 1,000 ML 75 ML IV CONT (16:13)
--- NOTE | 2019-10-14 17:52 | PHAR ---
Balcoltra (Ethinyl Estradiol - Levonorgestrel;Ferrous Bisglycinate Chelate) 0.02 MG-0.1 MG; 36.5 MG Balcoltra - Blue 36.5 MG Tablet Balcoltra - [place] 0.02 MG;0.1 MG Tablet [employer]
[2019-10-14] MEDS: HOME MEDICATION 1 EACH PO (18:38)
[2019-10-14 20:22] LABS: Hematocrit 28.9 % (37.0-47.0); Hemoglobin 9.6 g/dL (12.0-15.0)
[2019-10-14 21:49] LABS: Barbiturate Screen Urine Negative (Negative); Benzodiazepines Screen Urine Negative (Negative)
[2019-10-14 21:53] LABS: Cannabinoid Screen Urine Negative (Negative); Cocaine Screen Urine Positive (Negative); Methadone Screen Urine Negative (Negative); Opiate Screen Urine Negative (Negative); Phencyclidine Screen Urine Negative (Negative)
[2019-10-14 22:10] LABS: Amphetamine Screen Urine Positive (Negative)
[2019-10-15 02:42] LABS: Blood Urea Nitrogen 12 mg/dL (7-17); Calcium 8.5 mg/dL (8.4-10.2); Carbon Dioxide 25 mmol/L (22-30); Chloride 104 mmol/L (98-107); Estimated CRCL calculation 73 ml/min; Estimated Glomerular Filt Rate > 60; Glucose 82 mg/dL (65-105); Magnesium 2.2 mg/dL (1.6-2.3); Potassium 3.6 mmol/L (3.4-5.0); Sodium 135 mmol/L (137-145)
[2019-10-15 03:06] LABS: Basophils Absolute Auto 0.1 K/mm3 (0.0-0.1); Basophils Percent Auto 0.8 % (0.2-1.2); Eosinophils Absolute Auto 0.2 K/mm3 (0-0.3); Eosinophils Percent Auto 2.6 % (0-4.4); Hematocrit 27.4 % (37.0-47.0); Immature Granulocyte Absolute 0.02 K/mm3 (0.00-0.031); Immature Granulocyte Percent A 0.3 % (0-0.5); Lymphocytes Absolute Auto 2.65 K/mm3 (0.9-3.2); Lymphocytes Percent Auto 42.4 % (18.3-44.2); Mean Corpuscular HGB Conc 32.8 g/dl (32-36); Mean Corpuscular Hemoglobin 31.1 pg (26-34); Mean Corpuscular Volume 94.8 fl (80-100); Mean Platelet Volume 9.8 fl (7.4-10.4); Monocytes Absolute Auto 0.4 K/mm3 (0.1-0.6); Monocytes Percent Auto 6.7 % (2.6-8.5); Neutrophils Percent Auto 47.2 % (45.5-73.1); Platelet Count Result 307 k/mm3 (150-375); Red Blood Count 2.89 M/mm3 (4.2-5.4); Red Cell Distribution Width 14.1 % (11.5-14.5); White Blood Count 6.3 K/mm3 (4.5-10.0)
[2019-10-15 06:00] VITALS: BP 119/65; PULSE 79; RESP 12; TEMP 36.4; O2SAT 100
[2019-10-15] MEDS: LACTATED RINGERS 1,000 ML 75 ML IV CONT ×2 (06:24→19:49)
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
[2019-10-15] MEDS: PANTOPRAZOLE SODIUM IV 40 MG VIAL IV PUSH ×2 (08:20→20:35)
[2019-10-15] MEDS: HOME MEDICATION 1 EACH PO (08:24)
[2019-10-15] MEDS: PEG (High)/E-LYTE SOLN 4,000 ML BTL 4000 ML PO (08:25)
--- NOTE | 2019-10-15 11:27 | PM.IMPN ---
Progress Note: A&P Assessment and Plan (1) Acute GI bleeding: Code(s): K92.2 - Gastrointestinal hemorrhage, unspecified Status: Acute Assessment and Plan: Patient presents with bright red blood per rectum. H&H on arrival was normal at 12.7/38. Repeat H&H this morning was 9.0/27.4 %. At this time she is asymptomatic with her hemoglobin drop in almost 4 points. Will continue monitoring H&H Q 6 hours. GI specialist was consulted and plans for a colonoscopy in the morning. Will continue monitoring H&H Q 6 hours. Monitoring blood loss and bowel movements. IV transfusion if needed. (2) Urinary tract infection: Code(s): N39.0 - Urinary tract infection, site not specified Status: Acute Assessment and Plan: Patient's urinalysis is slightly abnormal and emergency room completed further testing for chlamydia, gonorrhea and Trichomonas She was given IV ceftriaxone in the emergency room which will be continued until urine cultures return. She is having some dysuria at this time. STD testing negative for Trichomonas, still pending gonorrhea chlamydia testing. Will monitor for results on STD testing. (3) Substance use disorder: Code(s): F19.90 - Other psychoactive substance use, unspecified, uncomplicated Status: Acute Assessment and Plan: Patient reports using cocaine a few times a month and she last used last night. Urine drug screen was positive for amphetamines and cocaine. Patient does not seem like she is going any withdrawal at this time Continue monitoring. (4) Tobacco abuse: Code(s): Z72.0 - Tobacco use Status: Acute Assessment and Plan: Patient continues to vapor with nicotine and she was educated for 3 minutes on quitting smoking and the harms of vaping Will order nicotine patch as needed. Time Spent With Patient Time with patient: 25 - 35 minutes Subjective Date/time seen: 10/15/19 11:27 Interval history: Date of service 10/15/2019: Patient states last night her bright red blood per rectum stopped and it began to be more dark in color and has noticed some clots. Denies any more bright red blood, and while she is undergoing her colonoscopy prep she still noticing dark blood, stools and clots. She denies any pain with bowel movements, abdominal pain, nausea, vomiting. She denies any chest pain, shortness of breath, lightheadedness, dizziness, fatigue, weakness from blood loss. She denies any fevers, chills, vaginal discharge, but she does report some dysuria today. Review of Systems Review of Systems: All systems reviewed & are unremarkable except as noted in HPI and below Exam Narrative: Exam Narrative: General: 39-year-old woman sitting up in bed, resting comfortably in no acute distress. Skin: No jaundice or cyanosis. Good skin turgor. Neck: Full range of motion. Supple. Respiratory: Lungs are clear to auscultation bilaterally. No wheezing, rales or rhonchi. Tenderness to light palpation of lateral left ribs. No signs of trauma, ecchymosis or contusion. Cardiovascular: Tachycardic rate, normal rhythm. No murmur auscultated. Lower extremities: No lower extremity edema. Distal pulses are easily palpated. No calf tenderness to palpation. Gastrointestinal: The abdomen is soft, nontender and nondistended with active bowel sounds. Psychiatric: Lucid and oriented. Memory intact. Neurologic: No focal deficits. Speech is clear. No facial drooping. Objective Data Vital Signs Vital Signs: Vital Signs - 24 hr 10/14/19 13:07 10/14/19 13:08 10/14/19 13:10 Temperature Pulse Rate 110 H 113 H 126 H Respiratory Rate Blood Pressure 142/91 H 152/101 H 138/93 H Pulse Oximetry 10/14/19 15:28 10/14/19 16:00 10/14/19 17:00 Temperature 97
[2019-10-15 14:00] VITALS: BP 118/77; PULSE 88; RESP 16; TEMP 36.1; O2SAT 100
[2019-10-15] MEDS: ONDANSETRON INJ 4 MG/2 ML VIAL IV PUSH (14:39)
[2019-10-15 14:47] LABS: Hematocrit 26.1 % (37.0-47.0); Hemoglobin 8.6 g/dL (12.0-15.0)
[2019-10-15 18:19] LABS: Hemoglobin 9.7 g/dL (12.0-15.0)
[2019-10-15 21:43] VITALS: BP 92/63; PULSE 75; RESP 16; TEMP 36.3; O2SAT 100
[2019-10-15 23:58] LABS: Hematocrit 23.9 % (37.0-47.0); Hemoglobin 7.6 g/dL (12.0-15.0)
[2019-10-16] VITALS (15 sets, daily range): BP systolic 94–132; BP diastolic 53–89; PULSE 16–78; RESP 13–98; TEMP 36.2–36.8; O2SAT 78–100; BMI 21.4
[2019-10-16] MEDS: SODIUM CHLORIDE 0.9% IV 250 ML 30 ML IV CONT (01:40)
--- NOTE | 2019-10-16 07:58 | PC.NURSE ---
Pt to GI lab via stretcher, IV intact.
[2019-10-16 08:18] LABS: Hemoglobin 10.9 g/dL (12.0-15.0); Mean Corpuscular Hemoglobin 30.3 pg (26-34); Mean Corpuscular Volume 91.7 fl (80-100); Platelet Count Result 279 k/mm3 (150-375); Red Cell Distribution Width 15.7 % (11.5-14.5); White Blood Count 4.5 K/mm3 (4.5-10.0)
[2019-10-16] MEDS: LACTATED RINGERS 1,000 ML 150 ML IV CONT (08:31)
--- NOTE | 2019-10-16 08:38 | WPDANESEPPF ---
Anes - Initial Pre Proc Eval Procedure: Operation Date: 10/16/19 09:00 Proposed Procedures p Colonoscopy - Carlos Dennis MD Date/Time: 10/16/19 08:38 Surgeon: Mary Wang PA-C Pre Op Diagnosis: GI bleeding/Urinary tract infection Patient Data Age: 39 Gender: F Height: 6 ft 4 in Weight: 56.7 kg Last Vital Signs Temp 36.8 C 10/16/19 08:17 Pulse 57 L 10/16/19 08:17 Resp 18 10/16/19 08:17 BP 123/70 10/16/19 08:17 Pulse Ox 96 10/16/19 08:17 Allergies Allergy/AdvReac Type Severity Reaction Status Date / Time Penicillins Allergy Mild Unknown Verified 10/14/19 11:11 Home Medications Medication Instructions Recorded Confirmed Type levonorgest-eth.estradiol-iron 1 tablet PO DAILY 10/14/19 10/14/19 History [Balcoltra] Laboratory Tests 10/14/19 10/15/19 10/15/19 11:33 14:31 18:13 WBC RBC Hgb 8.6 g/dL L g/dL 9.7 g/dL L g/dL (12.0-15.0) (12.0-15.0) Hct 26.1 % L % 30.0 % L % (37.0-47.0) (37.0-47.0) MCV MCH MCHC RDW Plt Count MPV Sodium Potassium Chloride Carbon Dioxide BUN Creatinine Estim Creat Clear Calc Estimated GFR Glucose Calcium Blood Type A Positive Antibody Screen Negative Crossmatch See Detail 10/15/19 10/16/19 10/16/19 23:40 07:49 07:49 WBC 4.5 K/mm3 K/mm3 (4.5-10.0) RBC 3.60 M/mm3 L M/mm3 (4.2-5.4) Hgb 7.6 g/dL L g/dL 10.9 g/dL L D g/dL (12.0-15.0) (12.0-15.0) Hct 23.9 % L % 33.0 % L % (37.0-47.0) (37.0-47.0) MCV 91.7 fl fl (80-100) MCH 30.3 pg pg (26-34) MCHC 33.0 g/dl g/dl (32-36) RDW 15.7 % H % (11.5-14.5) Plt Count 279 k/mm3 k/mm3 (150-375) MPV 10.0 fl fl (7.4-10.4) Sodium Pending Potassium Pending Chloride Pending Carbon Dioxide Pending BUN Pending Creatinine Pending Estim Creat Clear Calc Pending Estimated GFR Pending Glucose Pending Calcium Pending Blood Type Antibody Screen Crossmatch Patient hx anesthesia problems: none Family hx anesthesia problems: none PMFSH Past Medical History Medical History Substance use disorder Uses cocaine Tobacco abuse Surgical History Surgical History History of thumb surgery Right Family History Family History Mother Lung cancer Brain cancer Father Hypertension Social History Social History Smoking status: Current every day smoker Tobacco type: e-cigarettes/vaping Second hand tobacco smoke exposure: Yes Additional smoking assessment comments: She smoked cigarettes for 23 years 1 PPD, now she vapes Alcohol intake: current Alcohol use details: Patient reports social alcohol use. Last night she drank 6 beers and 3 shots. Substance use: current Substance use type: crack/cocaine Other substance usage details: She reports using cocaine a few times per month. Last use: 10/13/2019 Living arrangements: with family Additional living arrangements comments: She lives in [place], [place] with her two children. 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
[2019-10-16 08:40] LABS: Blood Urea Nitrogen 4 mg/dL (7-17); Calcium 8.5 mg/dL (8.4-10.2); Carbon Dioxide 26 mmol/L (22-30); Chloride 104 mmol/L (98-107); Estimated CRCL calculation 82 ml/min; Estimated Glomerular Filt Rate > 60; Glucose 90 mg/dL (65-105); Potassium 3.9 mmol/L (3.4-5.0); Sodium 137 mmol/L (137-145)
[2019-10-16] MEDS: SIMETHICONE ORAL SUSPENSION 20 MG/0.3 ML 30 ML BOTTLE 0.6 ML PO (09:21)
[2019-10-16] MEDS: PANTOPRAZOLE SODIUM IV 40 MG VIAL IV PUSH (10:36)
--- NOTE | 2019-10-16 11:14 | PC.NURSE ---
Patient returned from GI lab.
--- NOTE | 2019-10-16 11:20 | PC.NURSE ---
Pt to radiology via wheelchair.
--- NOTE | 2019-10-16 11:58 | PCCCNOTE ---
On 10/16/19, the student Nenita Samson provided care and completed [facility] documentation on this patient. I have reviewed the student's documentation and agree with the findings.
--- NOTE | 2019-10-16 13:18 | PC.NURSE ---
Pt returned from radiology via wheelchair.
[2019-10-16 13:56] LABS: Hematocrit 34.1 % (37.0-47.0); Hemoglobin 11.1 g/dL (12.0-15.0)
--- NOTE | 2019-10-16 15:20 | PM.DS ---
DS: Admitting Diagnosis Admitting Diagnosis Admitting Diagnosis: Gastrointestinal hemorrhage, unspecified DS: Discharge Diagnosis Discharge Diagnosis (1) Acute GI bleeding: Code(s): K92.2 - Gastrointestinal hemorrhage, unspecified Status: Acute Assessment and Plan: Patient presents with bright red blood per rectum. H&H on arrival was normal at 12.7/38. Repeat H&H last night was 7.6/23.9%. She was give 2 Units of PRBCS. Repeat H&H showed Hgb 11.1 and Hct 34.1%. The patient denies anymore bleeding. No more hematochezia or melena noted in her stools. Plan for discharge to follow up with PCP in 1 week and follow up with Dr. Dennis in 2 weeks for further evaluation. (2) Urinary tract infection: Code(s): N39.0 - Urinary tract infection, site not specified Status: Acute Assessment and Plan: Patient's urinalysis is slightly abnormal and emergency room completed further testing for chlamydia, gonorrhea and Trichomonas Urine culture is negative. STD testing negative for Trichomonas, still pending gonorrhea chlamydia testing. She was given Ceftriaxone IV for potential UTI and Gonorrhea, and will be discharged on Doxycycline 100 mg BID for 7 days for treatment of Chlamydia. She is still having slight dysuria, but it is improved. Will have her follow up with PCP for further evaluation. (3) Substance use disorder: Code(s): F19.90 - Other psychoactive substance use, unspecified, uncomplicated Status: Acute Assessment and Plan: Patient reports using cocaine a few times a month and she last used last night. Urine drug screen was positive for amphetamines and cocaine. Patient does not seem like she is going any withdrawal at this time. Educated the patient to quit using illegal substances and cocaine can cause vasoconstriction causing some of her bleeding issues from ischemia. (4) Tobacco abuse: Code(s): Z72.0 - Tobacco use Status: Acute Assessment and Plan: Patient continues to vapor with nicotine and she was educated for 3 minutes on quitting smoking and the harms of vaping Will order nicotine patch as needed. DS: Summary Hospital Course Reason for hospitalization: Saray Loza is a 39 year old female with a history of cocaine use, who presented to the emergency department after having multiple bouts bright red blood in her stool since 4:30 a.m. this morning. Initial vital signs showed temperature of 98.5?, blood pressure 156/95, tachycardic heart rate 128, respiratory rate 20, oxygen saturation 100% on room air. Initial labs showed slight leukocytosis at 11,000, normal hemoglobin at 12.7, hematocrit 38, elevated platelet count at 454. CMP showed slight hyponatremia at 136, otherwise normal. Normal lactic acid. Lipase normal. Urinalysis was abnormal with 1+ leukocyte esterase, 21-30 wbc's, 2+ blood, 6-10 RBCs, and moderate amount of mucus. CT abdomen showed mild wall thickening of the bladder which could reflect a cystitis, and multiple old left-sided rib fractures. There was no acute changes to the CT to correlate with her symptoms. The patient will be admitted into the hospital for further evaluation of GI bleeding, monitoring H&H, IV fluid hydration, and a consult to GI specialist for further evaluation. Please see above under each diagnosis as to what transpired during her admission. Status at Discharge Cognitive/behavioral status at discharge: Stable, improved. Time Spent with Patient Time attestation: Total time spent providing and/or coordinating discharge services: Time spent: Greater than 30 minutes Exam Narrative: Exam Narrative: General: 39-year-old woman sitting up in bed, resting comfortably in no acute distress. Ski
--- NOTE | 2019-10-16 17:11 | PC.NURSE ---
Called patient after discharge to inform her that her home medication was left behind, pt instructed me to discard the medication. she states they are just sugar pills.
--- NOTE | 2019-10-18 10:05 | PC.NURSE ---
Spoke with patient regarding negative results for her Gonorrhea and Chlamydia tests.
== END 2019-10-16 17:13 | disposition home or self-care (01) | DRG 378 ==
LOC: ANHED 14:12 → ANH2MED 15:16
PROVIDERS: Emergency Medicine Emergency Medical Services; Internal Medicine Gastroenterology; Physician Assistant; Admitting Provider Internal Medicine; Emergency Provider General Practice; PCP Family Medicine; Visit Provider Family Medicine
PROC: 0DJD8ZZ Inspection of Lower Intestinal Tract, Via Natural or Artificial Opening Endoscopic (ICD-10-PCS; CPT 45378; principal; 2019-10-16 09:00)
PROC: 0DJ08ZZ Inspection of Upper Intestinal Tract, Via Natural or Artificial Opening Endoscopic (ICD-10-PCS; CPT 43235; 2019-10-16 09:00)
DX: K92.2 Gastrointestinal hemorrhage, unspecified (principal); D62 Acute posthemorrhagic anemia; K63.5 Polyp of colon; K64.8 Other hemorrhoids; F17.290 Nicotine dependence, other tobacco product, uncomplicated; F14.90 Cocaine use, unspecified, uncomplicated; F15.90 Other stimulant use, unspecified, uncomplicated; A74.9 Chlamydial infection, unspecified
CPT/HCPCS: 36415; 36430; 74177; 74250; 80048; 80053; 80307; 81001; 83605; 83690; 83735; 85014; 85018; 85025; 85027; 86850; 86900; 86901; 86920; 87070; 87086; 87088; 87491; 87591; 87808; 88305; 96361; 96365; 96375; 96376; 99285; A9270; C9113; G0378; J0131; J0696; J2001; J2405; J2704; J7030; J7050; J7120; P9016; Q9967

== ENCOUNTER 2019-10-25 13:00 | Emergency (ER) | payer BC, SELFPAY ==
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
[2019-10-25 13:03] VITALS: BP 145/103; PULSE 86; RESP 18; TEMP 36.6; O2SAT 100
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
[2019-10-25 15:23] VITALS: BP 122/70; PULSE 70; RESP 18; O2SAT 99
== END 2019-10-25 15:26 | disposition home or self-care (01) ==
PROVIDERS: Emergency Provider Emergency Medicine; PCP Family Medicine
DX: S00.531A Contusion of lip, initial encounter (principal); S10.93XA Contusion of unspecified part of neck, initial encounter; S60.222A Contusion of left hand, initial encounter; S22.42XD Multiple fractures of ribs, left side, subsequent encounter for fracture with routine healing; M41.9 Scoliosis, unspecified; Y04.1XXA Assault by human bite, initial encounter; Y04.2XXA Assault by strike against or bumped into by another person, initial encounter; F17.290 Nicotine dependence, other tobacco product, uncomplicated
CPT/HCPCS: 71046; 71100; 72072; 73130; 99284

== ENCOUNTER 2021-01-22 17:21 | Emergency (ER) | payer OTHER, SELFPAY ==
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
[2021-01-22 17:38] VITALS: BP 151/101; PULSE 83; RESP 18; TEMP 36.8; O2SAT 100
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
== END 2021-01-22 19:20 | disposition home or self-care (01) ==
PROVIDERS: Emergency Provider Nurse Practitioner
DX: S62.611A Displaced fracture of proximal phalanx of left index finger, initial encounter for closed fracture (principal); Y09 Assault by unspecified means; M54.2 Cervicalgia; F17.200 Nicotine dependence, unspecified, uncomplicated
CPT/HCPCS: 29130; 72050; 73130; 99214; G0463